=== PATIENT | female | born 1945 | race Caucasian/White ===

== ENCOUNTER 2019-09-29 16:38 | Observation (INO) | payer MEDICARE, OTHER ==
[~2019-09-29] VITALS: Ht 157.5 cm; Wt 87.5 kg
[2019-09-29] MEDS ORDERED: ONDANSETRON HCL INJ 2MG/ML 2ML 2 MG/ML VIAL IV PRN (16:45)
[2019-09-29] MEDS ORDERED: MORPHINE SULFATE 2 MG/ML SYR 1ML IV PRN (16:45)
[2019-09-29] MEDS ORDERED: MORPHINE SULFATE INJ 4 MG/ML INJ 1ML IV PRN (17:00)
[2019-09-29] MEDS ORDERED: ENOXAPARIN INJ 80 MG/0.8 ML SYR SC SCH (17:00)
[2019-09-29] MEDS ORDERED: ENOXAPARIN INJ 80 MG/0.8 ML SYR SC NR (17:00)
[2019-09-29 17:20] LABS: BASOPHILS % 0.3 % (0.0-1.0); EOSINOPHILS # (AUTO) 0.1 (0.0-0.4); EOSINOPHILS % 1.2 % (0.0-6.0); HEMATOCRIT 37.9 % (34.2-44.1); HEMOGLOBIN 12.2 g/dL (12.0-16.0); LYMPHOCYTES # (AUTO) 3.1 (1.0-3.2); LYMPHOCYTES % 35.8 % (18.0-39.1); MEAN CORPUSCULAR HEMOGLOBIN 31.9 pg (28-32); MEAN CORPUSCULAR HGB CONC 32.2 g/dL (31-35); MONOCYTES # (AUTO) 0.8 (0.2-0.8); NEUTROPHILS # (AUTO) 4.6 (2.1-6.9); NEUTROPHILS % 53.4 % (38.7-80.0); PLATELET COUNT 187 x10e3/uL (140-360); RED BLOOD COUNT 3.83 x10e6/uL (3.6-5.1); RED CELL DISTRIBUTION WIDTH 14.6 % (11.7-14.4)
[2019-09-29] MEDS ORDERED: LEVOTHYROXINE100 MCG PO (17:21)
[2019-09-29] MEDS ORDERED: TOVIAZ4 MG PO (17:21)
[2019-09-29] MEDS ORDERED: HYDRALAZINE HCL50 MG PO (17:21)
[2019-09-29] MEDS ORDERED: BYSTOLIC10 MG PO (17:21)
[2019-09-29] MEDS ORDERED: CLONAZEPAM0.5 MG PO (17:21)
[2019-09-29] MEDS ORDERED: POTASSIUM CHLO20 ME1 PO (17:21)
[2019-09-29] MEDS ORDERED: SIMVASTATIN20 MG PO (17:21)
[2019-09-29] MEDS ORDERED: FUROSEMIDE40 MG PO (17:21)
[2019-09-29 17:24] LABS: INR 0.85; PROTHROMBIN TIME 12.1 seconds (11.9-14.5)
--- NOTE | 2019-09-29 17:27 | NUR ---
PT TO THE FLOOR FROM ER. VITALS WNL. PT DENIES NEEDS AT THIS TIME.
[2019-09-29 17:29] LABS: ANION GAP 18.6 mmol/L (8-16); CALCIUM 10.1 mg/dL (8.4-10.2); CREATININE, SERUM 1.2 mg/dL (0.57-1.11); POTASSIUM 3.6 mmol/L (3.5-5.1)
[2019-09-29] MEDS: SODIUM CHLORIDE 0.9% 1000ML 1,000 ML IV SCH (17:37)
[2019-09-29 17:58] VITALS: BP 158/67
[2019-09-29 18:00] VITALS: BP 158/67
--- NOTE | 2019-09-29 19:00 | NUR ---
Patient visited in room during nursing rounds. Patient alert and oriented x3. at bedside visiting. Pt ambulatory with walker use and assistance prn. Pt stated she feel some tolerable pain on right leg and limps when ambulating. Pt on IVF (NS at 125ml/hr). Call pereira within reach. Will monitor.
[2019-09-29 20:00] VITALS: BP 129/61
[2019-09-30] VITALS (7 sets, daily range): BP systolic 112–141; BP diastolic 66–86
[2019-09-30] MEDS: SODIUM CHLORIDE 0.9% 1000ML 1,000 ML IV SCH ×3 (06:00→17:05)
--- NOTE | 2019-09-30 06:47 | NUR ---
Spoke with Matthew (Answering service) and informed of new consult for Dr. Bianka Stevens. Reason for consult are: SFV Thromobosis, Right femur fracture. Awaiting on MD call back or MD to round.
[2019-09-30] MEDS: RIVAROXABAN 15 MG TABLET PO SCH ×2 (09:13→17:55)
[2019-09-30] MEDS ORDERED: ONDANSETRON HCL 4 MG ORAL DISINTEGRATING TAB PO PRN (13:30)
--- NOTE | 2019-09-30 13:38 | NUR ---
SILVINO explained to patient and , signed, copy to them, copy to [email or web address]
--- NOTE | 2019-09-30 18:15 | NUR ---
The pt's discharge is pending consult by Dr. Stevens.
--- NOTE | 2019-09-30 19:00 | NUR ---
Patient visited in room during nursing rounds. Patient alert and oriented x3. Pt ambulatory with walker use and assistance prn. During ambulation, pt limps on right leg. Pt denies any discomfort or pain at this time. Pt on IVF. Call pereira within reach. Will monitor.
--- NOTE | 2019-09-30 20:04 | NUR ---
Spoke with Bianca Leos (AIR BAG BUILDER) over the phone and informed that Dr. Stevens has not seen patient yet but aware of the consult. Bianca aware and ordered AM labs (TSH, CBC, BMP). Bianca also continued patient's home medications.
[2019-09-30] MEDS ORDERED: CLONAZEPAM 0.5 MG TAB PO PRN (20:15)
[2019-09-30] MEDS ORDERED: SIMVASTATIN 20 MG TAB PO SCH (21:00)
[2019-09-30] MEDS: NEBIVOLOL 10 MG TAB PO SCH (21:05)
[2019-10-01 00:14] VITALS: BP 130/65
[2019-10-01 03:32] LABS: BASOPHILS % 0.4 % (0.0-1.0); EOSINOPHILS # (AUTO) 0.1 (0.0-0.4); EOSINOPHILS % 1.8 % (0.0-6.0); HEMATOCRIT 29.3 % (34.2-44.1); HEMOGLOBIN 9.5 g/dL (12.0-16.0); LYMPHOCYTES # (AUTO) 2.3 (1.0-3.2); LYMPHOCYTES % 46.1 % (18.0-39.1); MEAN CORPUSCULAR HEMOGLOBIN 32.3 pg (28-32); MEAN CORPUSCULAR HGB CONC 32.4 g/dL (31-35); MEAN CORPUSCULAR VOLUME 99.7 fL (81-99); MONOCYTES # (AUTO) 0.5 (0.2-0.8); NEUTROPHILS % 40.5 % (38.7-80.0); PLATELET COUNT 135 x10e3/uL (140-360); RED BLOOD COUNT 2.94 x10e6/uL (3.6-5.1); RED CELL DISTRIBUTION WIDTH 14.8 % (11.7-14.4)
[2019-10-01 03:54] LABS: ANION GAP 12.6 mmol/L (8-16); BLOOD UREA NITROGEN 12 mg/dL (7-26); BUN/CREATININE RATIO 14 (6-25); CALCIUM 8.4 mg/dL (8.4-10.2); CARBON DIOXIDE 23 mmol/L (22-29); CHLORIDE 110 mmol/L (98-107); CREATININE, SERUM 0.84 mg/dL (0.57-1.11); EST GLOMERULAR FILTRATION RATE > 60 ML/MIN (60-); GLUCOSE 95 mg/dL (74-118); POTASSIUM 3.6 mmol/L (3.5-5.1); SODIUM 142 mmol/L (136-145)
[2019-10-01 04:00] VITALS: BP 141/69
[2019-10-01] MEDS ORDERED: ELIQUIS5 MG PO (04:46)
[2019-10-01] MEDS ORDERED: LEVOTHYROXINE88 MCG PO ×2 (04:46→05:04)
[2019-10-01] MEDS ORDERED: TYLENOL WITH C1 EACH PO (05:04)
[2019-10-01] MEDS ORDERED: NON-FORMULARY MEDICATION (Fesoterodine Fumarate (Toviaz) 4 MG) PO SCH (06:00)
[2019-10-01] MEDS ORDERED: LEVOTHYROXINE SODIUM 88 MCG TAB PO SCH (06:00)
[2019-10-01] MEDS ORDERED: LEVOTHYROXINE SODIUM 100 MCG TAB PO SCH (06:00)
--- NOTE | 2019-10-01 07:00 | NUR ---
BEDSIDE SHIFT REPORT RECEIVED FROM BRINE PURIFIER RN. PT DENIES NEEDS AT THIS TIME.
[2019-10-01 08:04] VITALS: BP_SYST 154; BP_SYST 171; BP_DIAS 70; BP_DIAS 74
[2019-10-01] MEDS: NEBIVOLOL 10 MG TAB PO SCH (08:43)
[2019-10-01] MEDS: RIVAROXABAN 15 MG TABLET PO SCH (08:44)
[2019-10-01 09:00] VITALS: BP 154/70
[2019-10-01] MEDS ORDERED: NON-FORMULARY MEDICATION (Hydralazine Hcl 50 MG) PO SCH (09:00)
[2019-10-01] MEDS ORDERED: HYDRALAZINE HCL 25 MG TAB PO SCH (09:00)
[2019-10-01] MEDS ORDERED: POTASSIUM CHLORIDE 20 MEQ TAB CR PO SCH (09:00)
[2019-10-01] MEDS ORDERED: FUROSEMIDE 40 MG TAB PO SCH (09:00)
[2019-10-01] MEDS ORDERED: XARELTO10 MG PO (10:05)
--- NOTE | 2019-10-01 15:44 | Consultation ---
DATE OF CONSULTATION: 10/01/2019 REASON FOR CONSULTATION: Right femoral vein thrombosis. HISTORY OF PRESENT ILLNESS: She is a 74-year-old female with history of cough, hypothyroidism, anxiety, hypertension, recent history of right hip fracture, currently following orthopedic on conservative management, admitted with right lower extremity swelling and discomfort. The patient had fracture in July 2019. She was on nonweightbearing. She feels she was complaining of worsening right lower extremity swelling and discomfort. Workup included Doppler showing right femoral deep vein thrombosis. The patient was started on Xarelto. Tolerating very well. Current hemoglobin is 9.5. Platelet count slightly dropped to the 135. No bruising or ecchymosis. PAST MEDICAL HISTORY: Hypertension, hypothyroidism, anxiety, right hip fracture. ALLERGIES: NKDA. MEDICATIONS: List reviewed. SOCIAL HISTORY: Lives with family. No smoking, alcohol, or drugs. FAMILY HISTORY: Noncontributory. PHYSICAL EXAMINATION: GENERAL: Alert, awake, communicative. HEENT: Normocephalic, atraumatic. Sclerae are pale. Conjunctiva clear. NECK: Supple. CHEST: Decreased breath sounds in the bases. CARDIOVASCULAR: Regular rate and rhythm. EXTREMITIES: Right lower extremity with edema. LABORATORY AND IMAGING DATA: Reviewed. ASSESSMENT AND PLAN: The patient with history of multiple medical condition, I am currently following for: 1. New onset of right lower extremity deep vein thrombosis. 2. The patient is currently on Xarelto. 3. This is provoked event. RECOMMENDATIONS: 1. To continue anticoagulation treatment. 2. Minimum period 3 months. 3. Depend upon her activity for future. 4. We will monitor the patient very closely. 5. Mild thrombocytopenia. 6. No evidence of any bleeding related to possible medication. 7. Repeat platelet count as outpatient. 8. We will continue remaining cannula. We will follow the patient closely. MD MICHELLE Cruz/ANNE /[id number]
--- NOTE | 2019-10-02 05:39 | Discharge Summary ---
ADMISSION DIAGNOSES: Superior femoral vein thrombosis, chronic kidney disease stage 3, hypertension with chronic kidney disease stage 3, hyperlipidemia, overactive bladder, hypothyroid. DISCHARGE DIAGNOSES: Superior femoral vein, thrombosis, chronic kidney disease stage 3, hypertension with chronic kidney disease stage 3, hyperlipidemia, overactive bladder, hypothyroid. MEDICAL HISTORY: Hypertension, hyperlipidemia, hypothyroidism, CKD stage 3, overactive bladder. SURGICAL HISTORY: Right total hip replacement, back surgery. FAMILY HISTORY: The patient's mother had cancer. SOCIAL HISTORY: Noncontributory. HOSPITAL COURSE: A 74-year-old female admits with complaints of right lower extremity pain that began a few days ago. She fractured her right femur on 07/25/2019, but did not require surgery. Ortho had her nonweightbearing, but she is using a walker to get around. On admission, the patient had bilateral lower extremity venous Doppler. The right lower extremity was positive for thrombus in the SFV. The patient was started on Lovenox. Hematology and Ortho were both consulted, both cleared the patient for discharge. She was given a prescription for Xarelto for 3 weeks and will follow up with Hematology for additional prescriptions. The patient understands discharge instructions and agrees to plan. Dictated by Bianca Leos NP MD URIEL Abernathy/ANNE /[id number]
--- NOTE | 2019-10-03 04:11 | Discharge Summary ---
ADMISSION DIAGNOSES: 1. Superficial femoral vein thrombosis. 2. Chronic kidney disease 3. 3. Hypertension with chronic kidney disease 3. 4. Hyperlipidemia. 5. Overactive bladder. 6. Hypothyroidism. DISCHARGE DIAGNOSES: 1. Superficial femoral vein thrombosis. 2. Chronic kidney disease 3. 3. Hypertension with chronic kidney disease 3. 4. Hyperlipidemia. 5. Overactive bladder. 6. Hypothyroidism. HISTORY: Hypertension, hyperlipidemia, hypothyroidism, CKD 3, overactive bladder. PAST SURGICAL HISTORY: Right total hip replacement, back surgery. FAMILY HISTORY: The patient's mom had cancer. SOCIAL HISTORY: Noncontributory. HOSPITAL COURSE: This 74-year-old female admits to complaints of right lower extremity pain that began a few days ago. She fractured her femur on 07/25/2019, but did not require surgery. Ortho has her nonweightbearing, but she is using a walker to get around. On admission venous Doppler showed SFV thrombus on the right lower extremity. Hematology was consulted. The patient was started on Lovenox and then was cleared for discharge by Ortho and Hematology. She was given a prescription for 3 weeks of Xarelto and will follow up for any refills. The patient understands discharge instructions and agreed to plan. She was advised to keep nonweightbearing until her followup in one month with Ortho. Dictated by Bianca Leos NP MD URIEL Abernathy/ANNE /[id number]
--- OUTSIDE RECORDS SUMMARY | 2019-10-07 11:31 | XMS REPORT ---
Author Author [facility] Address Unknown Phone Unavailable Care Team Providers Care Alarm Service Technician Name Role Phone Unavailable Unavailable Payers Payer Name Policy Type Policy Number Effective Date Expiration Date Problems This patient has no known problems. Allergies, Adverse Reactions, Alerts Allergy Name Allergy Type Status Severity Reaction(s) Onset Date Inactive Date Treating Clinician Comments oxycodone DA Active U 2019-07-26 00:00:00 aspirin DA Active U 2019-07-26 00:00:00 No Known Contrast Allergies DA Active U 2009-02-27 00:00:00 No Known Food Allergies DA Active U 2009-02-27 00:00:00 No Known Other Allergies DA Active U 2009-02-27 00:00:00 PERCODAN DA Active U 2009-02-27 00:00:00 oxycodone DA Active U 2009-02-20 00:00:00 aspirin DA Active U 2009-02-20 00:00:00 Medications This patient has no known medications. Results Test Description Test Time Test Comments Text Results Atomic Results Result Comments BASIC METABOLIC PANEL 2019-07-27 07:37:00 SODIUM (test code=NA) 142 mmol/L 136-145 POTASSIUM (test code=K) 4.4 mmol/L 3.5-5.1 CHLORIDE (test code=CL) 112.0 mmol/L 98-107 CARBON DIOXIDE (test code=CO2) 24.0 mmol/L 21-32 ANION GAP (test code=GAP) 10.4 10-20 GLUCOSE (test code=GLU) 96 mg/dL 74-106 BLOOD UREA NITROGEN (test code=BUN) 17 mg/dL 7-18 GLOMERULAR FILTRATION RATE (test code=GFR) 54 mL/min >=60 Estimated GFR by using Modified MDRD formula.Chronic kidney disease is defined as either kidney damageor GFR <60 mL/min/1.73 m2 for >3 months. CREATININE (test code=CREAT) 1.00 mg/dL 0.55-1.02 Note change in reference range due to change in reagent. BUN/CREATININE RATIO (test code=BUN/CREA) 17.0 10-20 CALCIUM (test code=CA) 8.5 mg/dL 8.5-10.1 BASIC METABOLIC [id number] 07:33:00* Test Item Value Reference Range Comments SODIUM (test code=NA) 142 mmol/L 136-145 POTASSIUM (test code=K) 4.4 mmol/L 3.5-5.1 CHLORIDE (test code=CL) 112.0 mmol/L 98-107 CARBON DIOXIDE (test code=CO2) mmol/L 21-32 ANION GAP (test code=GAP) 10-20 GLUCOSE (test code=GLU) mg/dL 74-106 BLOOD UREA NITROGEN (test code=BUN) mg/dL 7-18 GLOMERULAR FILTRATION RATE (test code=GFR) mL/min >=60 CREATININE (test code=CREAT) mg/dL 0.55-1.02 BUN/CREATININE RATIO (test code=BUN/CREA) 10-20 CALCIUM (test code=CA) mg/dL 8.5-10.1 CBC W/AUTO [id number] 06:44:00* Test Item Value Reference Range Comments WHITE BLOOD CELL (test code=WBC) 6.5 K/mm3 4.5-12.5 RED BLOOD CELL (test code=RBC) 3.35 mill/mm3 3.7-5.2 HEMOGLOBIN (test code=HGB) 10.6 gram/dL 11.5-15.5 HEMATOCRIT (test code=HCT) 32.9 % 36.0-46.0 MEAN CELL VOLUME (test code=MCV) 98.2 fL 80-98 MEAN CELL HGB (test code=MCH) 31.6 picogram 27.0-33.0 MEAN CELL HGB CONCETRATION (test code=MCHC) 32.2 gram/dL 33.0-36.0 RED CELL DISTRIBUTION WIDTH (test code=RDW) 14.0 % 11.6-16.2 RED CELL DISTRIBUTION WIDTH SD (test code=RDW-SD) 50.0 fL 37.0-51.0 PLATELET COUNT (test code=PLT) 127 K/mm3 150-450 MEAN PLATELET VOLUME (test code=MPV) 11.2 fL 6.7-11.0 NEUTROPHIL % (test code=NT%) 70.6 % 39.0-69.0 IMMATURE GRANULOCYTE % (test code=IG%) 0.3 % 0.0-5.0 LYMPHOCYTE % (test code=LY%) 20.0 % 25.0-55.0 MONOCYTE % (test code=MO%) 8.7 % 0.0-10.0 EOSINOPHIL % (test code=EO%) 0.2 % 0.0-5.0 BASOPHIL % (test code=BA%) 0.2 % 0.0-1.0 NUCLEATED RBC % (test code=NRBC%) 0.0 % 0-0 NEUTROPHIL # (test code=NT#) 4.62 K/mm3 1.8-7.7 IMMATURE GRANULOCYTE # (test code=IG#) 0.02 x10 3/uL 0-0.03 LYMPHOCYTE # (test code=LY#) 1.31 K/mm3 1.0-5.0 MONOCYTE # (test code=MO#) 0.57 K/mm3 0-0.8 EOSINOPHIL # (test code=EO#) 0.01 K/mm3 0.0-0.5 BASOPHIL # (test code=BA#) 0.01 K/mm3 0.0-0.2 NUCLEATED RBC # (test code=NRBC#) 0.00 K/mm3 0.0-0.1 PROTHROMBIN [id number] 19:24:00* Test Item Value Reference Range Comments PROTHROMBIN TIME PATIENT (test code=PTP) 10.9 seconds 9.0-14.0 INTERNATIONAL NORMAL RATIO (test code=INR) 0.9 0.8-1.2 The therapeutic range for oral anticoagulant therapy formost indications is an international normalized ratio (INR)of between 2.0 and 3.0. The recommended therapeutic INRrange for various clinical situations is listed below: Clinical Situation INR range Pulmonary e mbolism treatment (2.0-3.0)Venous thrombosis treatmentVenous thrombosis prophylaxis (high risk surgery)Prevention of systemic embolism from: Acute myocardial infarction Valvular heart disease Atrial fibrillation Mechanical prosthetic heart valves (2.5-3.5) IS PATIENT ON ANTICOAGULANTS? NTHROMBOPLASTIN TIME [id number] 19:24:00* Test Item Value Reference Range Comments THROMBOPLASTIN TIME PARTIAL (test code=PTT) 29.8 seconds 25.0-36.5 IS PATIENT ON ANTICOAGULANTS? N- XR KNEE 3 V [id number] 19:15:00 FAX: Cuauhtemoc Loyola MD [place]: St: REG Name: PRINCESS SADLER [facility] : [birth year] Age/S: 74/F [address] [facility] Unit #: [id number] Loc: [place] [address] Phys: Cuauhtemoc Loyola MD Acct: [id number] Dis Date: Status: REG ER PHONE #: [phone] Exam Date: 07/26/2019 1851 FAX #: [phone] Reason: KNEE PAIN EXAMS: CPT CODE: [id number] XR KNEE 3 V RT [id number] HISTORY: HIP PAIN E XAM: AP pelvis , AP and frog-leg views of the right hip, AP and lateral v iews of the right femur, and AP and lateral and oblique views of the right knee. Comparison: No study within the past 10 years FINDINGS: No acute fracture of the bony pelvis. De generative changes are present in the lumbar spine and left hip. T here is a right hip arthroplasty. The right hip is appropriately aligned. There is a transverse fracture in the proximal femoral shaft howev er no fracture of the underlying prosthesis. Knee joint is a ppropriately aligned. The soft tissues are within normal limits. IMPRESSION: Prior right hip arthroplasty with no eviden ce of hardware loosening or joint malalignment. There is a vera sverse fracture through the proximal femoral shaft at the level of the h ip prosthesis but no apparent damage to the underlying prosthesis. Degenerative changes are present in the spine and left hip. Elect ronically Signed by Kwame Mccoy MD on 07/26/2019 at 191 Reported and signed by: Kwame Mccoy MD CC: Cuauhtemoc Loyola MD Technologist: SHANELLE TORRE Trnscrd Date/Time/By: 07/26/2019 (1914) : By: [email or web address] Orig Print D/T: S: 07/26/2019 (1917) PAGE 1 Signed Report - XR FEMUR MIN 2 VWS RT 2019-07-26 19:15:00 FAX: Cuauhtemoc Loyola MD [place]: B St: REG Name: Lex NEHALLORIE [facility] : [birth year] Age/S: 74/F [address] [facility] Unit #: [id number] Loc: [place] [address] Phys: Cuauhtemoc Loyola MD Acct: [id number] Dis Date: Status: REG ER PHONE #: [phone] Exam Date: 07/26/2019 1850 FAX #: [phone] Reason: THIGH PAIN EXAMS: CPT CODE: [id number] XR FEMUR MIN [address] [place] [id number] HISTORY: HIP PAIN E XAM: AP pelvis , AP and frog-leg views of the right hip, AP and lateral v iews of the right femur, and AP and lateral and oblique views of the right knee. Comparison: No study within the past 10 years FINDINGS: No acute fracture of the bony pelvis. De generative changes are present in the lumbar spine and left hip. T here is a right hip arthroplasty. The right hip is appropriately aligned. There is a transverse fracture in the proximal femoral shaft howev er no fracture of the underlying prosthesis. Knee joint is a ppropriately aligned. The soft tissues are within normal limits. IMPRESSION: Prior right hip arthroplasty with no eviden ce of hardware loosening or joint malalignment. There is a vera sverse fracture through the proximal femoral shaft at the level of the h ip prosthesis but no apparent damage to the underlying prosthesis. Degenerative changes are present in the spine and left hip. Elect ronically Signed by Kwame Mccoy MD on 07/26/2019 at 1915 Reported and signed by: Kwame Mccoy MD CC: Cuauhtemoc Loyola MD Technologist: SHANELLE TORRE [facility] Date/Time/By: 07/26/2019 (1914) : By: [email or web address] Orig Print D/T: S: 07/26/2019 (1917) PAGE 1 Signed Report - XR HIP W/PEL UNI 2+V RT 2019-07-26 19:15:00 FAX: Cuauhtemoc Loyola MD [place]: St: REG Name: Lex KUMARSPRINCESS [facility] : [birth year] Age/S: 74/F [address] [facility] Unit #: [id number] Loc: [place] [address] Phys: Cuauhtemoc Loyola MD Acct: [id number] Dis Date: Status: REG ER PHONE #: [phone] Exam Date: 07/26/2019 184 FAX #: [phone] Reason: HIP PAIN EXAMS: CPT CODE: [id number] XR HIP W/PEL UNI 2+V RT [id number] HISTORY: HIP PAIN E XAM: AP pelvis , AP and frog-leg views of the right hip, AP and lateral v iews of the right femur, and AP and lateral and oblique views of the right knee. Comparison: No study within the past 10 years FINDINGS: No acute fracture of the bony pelvis. De generative changes are present in the lumbar spine and left hip. T here is a right hip arthroplasty. The right hip is appropriately aligned. There is a transverse fracture in the proximal femoral shaft howev er no fracture of the underlying prosthesis. Knee joint is a ppropriately aligned. The soft tissues are within normal limits. IMPRESSION: Prior right hip arthroplasty with no eviden ce of hardware loosening or joint malalignment. There is a vera sverse fracture through the proximal femoral shaft at the level of the h ip prosthesis but no apparent damage to the underlying prosthesis. Degenerative changes are present in the spine and left hip. Elect ronically Signed by Kwame Mccoy MD on 07/26/2019 at 191 Reported and signed by: Kwame Mccoy MD CC: Cuauhtemoc Loyola MD Technologist: SHANELLE TORRE Trnscrd Date/Time/By: 07/26/2019 (1914) : By: [email or web address] Orig Print D/T: S: 07/26/2019 (1917) PAGE 1 Signed Report BASIC METABOLIC PANEL 2019-07-26 19:13:00* Test Item Value Reference Range Comments SODIUM (test code=NA) 143 mmol/L 136-145 POTASSIUM (test code=K) 3.8 mmol/L 3.5-5.1 CHLORIDE (test code=CL) 111.0 mmol/L 98-107 CARBON DIOXIDE (test code=CO2) 21.0 mmol/L 21-32 ANION GAP (test code=GAP) 14.8 10-20 GLUCOSE (test code=GLU) 118 mg/dL 74-106 BLOOD UREA NITROGEN (test code=BUN) 22 mg/dL 7-18 GLOMERULAR FILTRATION RATE (test code=GFR) 44 mL/min >=60 Estimated GFR by using Modified MDRD formula.Chronic kidney disease is defined as either kidney damageor GFR <60 mL/min/1.73 m2 for >3 months. CREATININE (test code=CREAT) 1.20 mg/dL 0.55-1.02 Note change in reference range due to change in reagent. BUN/CREATININE RATIO (test code=BUN/CREA) 18.6 10-20 CALCIUM (test code=CA) 9.2 mg/dL 8.5-10.1 CBC W/O [id number] 19:13:00* Test Item Value Reference Range Comments WHITE BLOOD CELL (test code=WBC) 8.6 K/mm3 4.5-12.5 RED BLOOD CELL (test code=RBC) 3.66 mill/mm3 3.7-5.2 HEMOGLOBIN (test code=HGB) 11.5 gram/dL 11.5-15.5 HEMATOCRIT (test code=HCT) 35.9 % 36.0-46.0 MEAN CELL VOLUME (test code=MCV) 98.1 fL 80-98 MEAN CELL HGB (test code=MCH) 31.4 picogram 27.0-33.0 MEAN CELL HGB CONCETRATION (test code=MCHC) 32.0 gram/dL 33.0-36.0 RED CELL DISTRIBUTION WIDTH (test code=RDW) 13.9 % 11.6-16.2 PLATELET COUNT (test code=PLT) 140 K/mm3 150-450 MEAN PLATELET VOLUME (test code=MPV) 11.0 fL 6.7-11.0
== END 2019-10-01 10:45 | disposition home or self-care (01) ==
LOC: ER 16:38 → ERHOLD 16:42 → MED/SURG 17:23
PROVIDERS: ADMIT Internal Medicine; ATTEND Internal Medicine
DX: I82.411 Acute embolism and thrombosis of right femoral vein (principal); I12.9 Hypertensive chronic kidney disease with stage 1 through stage 4 chronic kidney disease, or unspecified chronic kidney disease; N18.3 Chronic kidney disease, stage 3 (moderate); N32.81 Overactive bladder; E03.9 Hypothyroidism, unspecified; E78.5 Hyperlipidemia, unspecified; Z87.81 Personal history of (healed) traumatic fracture
CPT/HCPCS: 36415 ×2; 80048 ×2; 84443; 85025 ×2; 85610; 99284; G0378 ×3; J1650; J7030 ×2

== ENCOUNTER → 2019-09-29 | Outpatient (CLI) | payer MEDICARE, OTHER ==
[~2019-09-29] MED LIST: BYSTOLIC10 MG PO; CLONAZEPAM0.5 MG PO; ELIQUIS5 MG PO; FUROSEMIDE40 MG PO; HYDRALAZINE HCL50 MG PO; LEVOTHYROXINE100 MCG PO; LEVOTHYROXINE88 MCG PO; POTASSIUM CHLO20 ME1 PO; SIMVASTATIN20 MG PO; TOVIAZ4 MG PO; TYLENOL WITH C1 EACH PO; XARELTO10 MG PO
== END ==
LOC: RAD 15:42
PROVIDERS: ATTEND Specialist
DX: M79.89 Other specified soft tissue disorders (principal)
CPT/HCPCS: 93970